=== PATIENT | male | born 1970 | race Caucasian/White ===

== ENCOUNTER 2023-05-13 18:46 | Inpatient (IN) | payer OTHER, SELFPAY ==
[2023-05-13 19:05] VITALS: BP 148/85; PULSE 84; RESP 15; TEMP 36.6; O2SAT 97
[2023-05-13 19:27] VITALS: BMI 26.0
[2023-05-13 20:00] VITALS: BP 115/66; PULSE 70; RESP 16; TEMP 36.7; O2SAT 97
[2023-05-13] MEDS: QUEtiapine Fumarate 200 MG TABLET PO (21:50)
[2023-05-13] MEDS: Carbidopa/Levodopa 25/100 TABLET 3 TAB PO (21:50)
[2023-05-13] MEDS: traZODone HCL 50 MG TABLET PO (21:51)
--- NOTE | 2023-05-14 00:03 | PC.ADMIT ---
Patient admitted to from [facility] on 05/13/23 at 1915 on a CV for SI. Patient had previous inpatient hospitalization at [facility] and was discharged 05/05/23, due to needing to attend a court hearing in [place]. Patient then traveled to [place] from [place] to seek help, patient reports his head ?feeling messed up? ever since he left [facility].? Patient wishing to be set up with PCP, and psychiatric provider as he has none of these. Medical history include parkinson?s disease for which he takes sinemet QID. Upon arrival to unit, skin and contraband check completed by prior shift. Patient cooperative with admission process. Signed releases for sister, insurance and pharmacy. Currently denying SI/HI/AH/VH, misha for safety. Patient declined flu shot.
[2023-05-14 07:00] VITALS: BMI 26.1
[2023-05-14 07:40] VITALS: BP 108/68; PULSE 78; RESP 16; TEMP 36.3; O2SAT 97
[2023-05-14 08:19] VITALS: BP 108/68; PULSE 78; RESP 16; TEMP 36.3; O2SAT 97
[2023-05-14 08:22] LABS: Estimated Average Glucose 103 mg/dL; Hemoglobin A1c % 5.2 % (<6.0)
[2023-05-14 08:33] LABS: Cholesterol 150 mg/dL (<200); HDL Cholesterol 37 mg/dL (>40); LDL Cholesterol Calculated 98 mg/dL (<100); Triglycerides 79 mg/dL (<150)
[2023-05-14] MEDS: Escitalopram Oxalate 10 MG TABLET PO (08:46)
[2023-05-14] MEDS: QUEtiapine Fumarate 50 MG TABLET PO (08:46)
[2023-05-14] MEDS: Carbidopa/Levodopa 25/100 TABLET 3 TAB PO ×4 (08:46→20:53)
[2023-05-14 08:48] LABS: Free T4 (Free Thyroxine) 0.76 ng/dL (0.71-1.85); Thyroid Stimulating Hormone 1.66 uIU/mL (0.32-4.0)
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
--- NOTE | 2023-05-14 12:22 | P.CONHOSP_ITS ---
History of Present Illness Data of Consult Service Date: 05/14/23 Primary Care Provider: Unknown Physician HPI Reason for consult: Admission H&P Pt is a 52-year-old male with a PMH significant for?Parkinson's disease, untreated hep C, alcohol use disorder, and bipolar disorder who is admitted to M3 psychiatry unit for increasing depression with vague SI. Apparently patient was recently at [facility] for psychiatric hospitalization but was discharged on 05/05/2023 because he had a court date to attend in [place]. Continues to feel suicidal and unsafe at home. Medical consult for admission H&P. ?Patient reports being diagnosed with Parkinson's in 2019 and states that it is both physically and mentally draining. Reports being compliant with his home medications. Patient also reports being diagnosed with hep C, though was not initially treated because he was drinking heavily at the time. Has not sought outpatient treatment for hep C since then. Currently patient states he is at baseline, and has no acute medical complaints at this time. Chronic musculoskeletal pain, especially in in left leg. Denies chest pain/pressure, palpitations. No fever, chills, nausea, vomiting, abdominal pain. No shortness of breath. Review of Systems Review of Systems: Patient has no acute medical complaints at this time [facility] Medical History (Updated 05/14/23 @ 12:46 by CHAGO Posada) Hepatitis C Alcohol use disorder Parkinsons disease Social History Household Members: Family Household Members Other:: NIECE/NEPHEW Housing: House Do you presently have visiting nurse or other home services: No Patient Tobacco Use Status: Current everyday Tobacco user Tobacco use type: Cigarette Cigarette Packs Per Day: 0.3 Cigarettes Per Day: 6.0 Smoked in Last 30 Days: Yes Patient Interested in Nicotine Replacement: No Patient Given Instructions on How to Stop Smoking: Yes Date Education Initiated: 05/13/23 Use of substances other than those prescribed or required for medical reasons: Yes Substance Use Type: Marijuana Substance Use Frequency: Daily Last Used Substance: Just Prior to Admission Currently Displaying Signs/Symptoms of Drug Intoxication Withdrawal: No Have you been hit, kicked, punched, or otherwise hurt by someone within the past year? If so, by whom?: No Do you feel safe in your current relationship?: No Current Relationship Is there a partner from a previous relationship who is making you feel unsafe now?: No Are you made to feel afraid or neglected: No Advance Directives: No Advance Directives Information Provided: No Do you have thoughts of harming others: None Do you have a plan to hurt others: No Plan Recently lost weight without trying: No Nutrition Risks: No Nutritional Risk Poor oral hygiene: No Meds Allergies Allergy/AdvReac Type Severity Reaction Status Date / Time No Known Allergies Allergy Verified 05/13/23 19:42 Active Medications: Current Medications Acetaminophen (Acetaminophen 325 Mg Tablet) 650 mg PO Q6H PRN PRN Reason: Headache/Pain Mild Scale (1-3) Al Hydroxide/Mg Hydroxide (Magnesium Hydrox/Alum Hydrox 30 Ml Oral.Susp) 30 ml PO Q6H PRN PRN Reason: Heartburn/Nausea Carbidopa/Levodopa (Carbidopa/Levodopa 25/100 Tablet) 3 tab PO QID PENDING SALE TO [facility] Last Admin: 05/14/23 08:46 Dose: 3 tab Escitalopram Oxalate (Escitalopram Oxalate 20 Mg Tablet) 20 mg PO DAILY [facility] Hydroxyzine HCl (Hydroxyzine Hcl 25 Mg Tablet) 25 mg PO Q6H PRN PRN Reason: Anxiety Magnesium Hydroxide (Milk Of Magnesia 30 Ml Oral.Susp) 30 ml PO DAILY PRN PRN Reason: Constipation Ondansetron HCl (Ondansetron Odt 4 Mg Tab.Rapdis) 4 mg TRANSLINGU Q6H PRN PRN Reason: Nausea and Vomiting Quetiapine Fumarate (Quetiapine Fumarate 200 Mg Tablet) 200 mg PO BEDTIME [facility]END[facility] Last Admin: 05/13/23 21:50 Dose: 200 mg Quetiapine Fumarate (Quetiapine Fumarate 25 Mg Tablet) 75 mg PO TID@0900,1300,1700 PEND[facility] TO [facility] Trazodone HCl (Trazodone Hcl 50 Mg Tablet) 50 mg PO BEDTIME MRX1 PRN PRN Reason: Insomnia Last Admin: 05/13/23 21:51 Dose: 50 mg Home Medications Medication Instructions Recorded Confirmed Last Taken Type carbidopa 25 mg-levodopa 100 mg 3 tab PO QID 05/13/23 05/13/23 Unknown History tablet escitalopram oxalate 10 mg tablet 10 mg PO DAILY 05/13/23 05/13/23 Unknown History quetiapine 200 mg tablet 200 mg PO BEDTIME 05/13/23 05/13/23 Unknown History quetiapine 50 mg tablet 50 mg PO BID 05/13/23 05/13/23 Unknown History trazodone 50 mg tablet 50 mg PO BEDTIME 05/13/23 05/13/23 Unknown History Physical Exam Vital Signs and Narrative: Vital Signs: Last Vital Signs Temp 97.3 F 05/14/23 08:19 Pulse 78 05/14/23 08:19 Resp 16 05/14/23 08:19 BP 108/68 05/14/23 08:19 Pulse Ox 97 05/14/23 08:19 O2 Del Method Room Air 05/14/23 08:19 BMI result Body Mass Index 26.0 General: AOx3, no acute distress Resp: CTA bilaterally CVS: S1, S2, RRR GI: +BS, NT, no distention Skin: Warm, dry Neuro: Cranial nerves II-XII grossly intact bilaterally. Motor grossly intact bilaterally Extremities: No edema Psych: Calm, cooperative Results Labs Labs: Laboratory Results - last 24 hr 05/14/23 08:05 Estimat Average Glucose 103 Hemoglobin A1c % 5.2 Magnesium 2.0 Triglycerides 79 Cholesterol 150 LDL Cholesterol, Calc 98 HDL Cholesterol 37 L TSH 1.66 Free T4 0.76 Assessment and Plan (1) Medical clearance for psychiatric admission: Status: Acute Plan Pt is a 52-year-old male with a PMH significant for?Parkinson's disease, untreated hep C, alcohol use disorder, and bipolar disorder who is admitted to M3 psychiatry unit for increasing depression with vague SI. Apparently patient was recently at [facility] for psychiatric hospitalization but was discharged on 05/05/2023 because he had a court date to attend in [place]. Continues to feel suicidal and unsafe at home. Medical consult for admission H&P. ? Mood disorder Plan as per Psychiatry Parkinson's disease Continue carbidopa levodopa Insomnia Continue trazodone Hepatitis-C Untreated Follow-up outpatient Thank you for allowing us to participate in the care of this patient. Signing off at this time. Please re-consult if any acute complaints or issues arise.
[2023-05-14 12:44] LABS: Folate 11.2 ng/mL (> or = 4.0); Vitamin B12 608 pg/mL (200-900)
[2023-05-14] MEDS: QUEtiapine Fumarate 25 MG TABLET 75 MG PO ×2 (13:01→17:24)
--- NOTE | 2023-05-14 14:30 | PC.NURSE ---
Pt completed a MOCA assessment with automotive service writer. PT scored a 21 out of 30 indicating a mild cognitive impairment.
--- NOTE | 2023-05-14 15:12 | PM.NEUROCN ---
History of Present Illness Data of Consult Service Date: 05/14/23 Primary Care Provider: Unknown Physician HPI Reason for consult: Parkinson's 52 years old man new to the system with underlying diagnosis of Parkinson's disease and history of alcohol abuse and some psychiatric disease. He has been taking relatively large dose of carbidopa levodopa. This routine consultation was requested for Parkinson's. He said that his main issue was shouting and kicking and jumping during sleep or during the night. He said that he was in [place] and there he was prescribed clonazepam. Review of Systems Review of Systems: Recent suicidal type of thoughts bringing him to psychiatric floor. [facility] Past Medical History Medical History (Updated 05/14/23 @ 15:15 by Nishant Wilhelm MD) Hepatitis C Alcohol use disorder Parkinsons disease Social History Social History Household Members: Family Household Members Other:: NIECE/NEPHEW Housing: House Do you presently have visiting nurse or other home services: No Patient Tobacco Use Status: Current everyday Tobacco user Tobacco use type: Cigarette Cigarette Packs Per Day: 0.3 Cigarettes Per Day: 6.0 Smoked in Last 30 Days: Yes Patient Interested in Nicotine Replacement: No Patient Given Instructions on How to Stop Smoking: Yes Date Education Initiated: 05/13/23 Use of substances other than those prescribed or required for medical reasons: Yes Substance Use Type: Marijuana Substance Use Frequency: Daily Last Used Substance: Just Prior to Admission Currently Displaying Signs/Symptoms of Drug Intoxication Withdrawal: No Have you been hit, kicked, punched, or otherwise hurt by someone within the past year? If so, by whom?: No Do you feel safe in your current relationship?: No Current Relationship Is there a partner from a previous relationship who is making you feel unsafe now?: No Are you made to feel afraid or neglected: No Advance Directives: No Advance Directives Information Provided: No Do you have thoughts of harming others: None Do you have a plan to hurt others: No Plan Recently lost weight without trying: No Nutrition Risks: No Nutritional Risk Poor oral hygiene: No service: No Sexual orientation: Straight/Heterosexual Meds Allergies Allergy/AdvReac Type Severity Reaction Status Date / Time No Known Allergies Allergy Verified 05/13/23 19:42 Active Medications: Current Medications Acetaminophen (Acetaminophen 325 Mg Tablet) 650 mg PO Q6H PRN PRN Reason: Headache/Pain Mild Scale (1-3) Al Hydroxide/Mg Hydroxide (Magnesium Hydrox/Alum Hydrox 30 Ml Oral.Susp) 30 ml PO Q6H PRN PRN Reason: Heartburn/Nausea Carbidopa/Levodopa (Carbidopa/Levodopa 25/100 Tablet) 3 tab PO QID [facility] Last Admin: 05/14/23 13:01 Dose: 3 tab Escitalopram Oxalate (Escitalopram Oxalate 20 Mg Tablet) 20 mg PO DAILY [facility] Hydroxyzine HCl (Hydroxyzine Hcl 25 Mg Tablet) 25 mg PO Q6H PRN PRN Reason: Anxiety Magnesium Hydroxide (Milk Of Magnesia 30 Ml Oral.Susp) 30 ml PO DAILY PRN PRN Reason: Constipation Ondansetron HCl (Ondansetron Odt 4 Mg Tab.Rapdis) 4 mg TRANSLINGU Q6H PRN PRN Reason: Nausea and Vomiting Quetiapine Fumarate (Quetiapine Fumarate 200 Mg Tablet) 200 mg PO BEDTIME [facility] Last Admin: 05/13/23 21:50 Dose: 200 mg Quetiapine Fumarate (Quetiapine Fumarate 25 Mg Tablet) 75 mg PO TID@0900,1300,1700 [facility] Last Admin: 05/14/23 13:01 Dose: 75 mg Trazodone HCl (Trazodone Hcl 50 Mg Tablet) 50 mg PO BEDTIME MRX1 PRN PRN Reason: Insomnia Last Admin: 05/13/23 21:51 Dose: 50 mg Home Medications Medication Instructions Recorded Confirmed Last Taken Type carbidopa 25 mg-levodopa 100 mg 3 tab PO QID 05/13/23 05/13/23 Unknown History tablet escitalopram oxalate 10 mg tablet 10 mg PO DAILY 05/13/23 05/13/23 Unknown History quetiapine 200 mg tablet 200 mg PO BEDTIME 05/13/23 05/13/23 Unknown History quetiapine 50 mg tablet 50 mg PO BID 05/13/23 05/13/23 Unknown History trazodone 50 mg tablet 50 mg PO BEDTIME 05/13/23 05/13/23 Unknown History Physical Exam Vital Signs: Vital Signs: Last Vital Signs Temp 97.3 F 05/14/23 08:19 Pulse 78 05/14/23 08:19 Resp 16 05/14/23 08:19 BP 108/68 05/14/23 08:19 Pulse Ox 97 05/14/23 08:19 O2 Del Method Room Air 05/14/23 08:19 BMI result Body Mass Index 26.1 Neuro: Other: He is alert and awake with normal spontaneity of speech fluency comprehension and affect. There is no significant reduction of facial expression blinking. He is walking around with mild choreiform movements of his arms and trunk. He has difficulty doing tandem gait. Deep tendon reflexes are trace to absent. Speech is normal. [id number] testing revealed mild chorea. Assessment and Plan (1) Movement disorder: Status: Acute 52 years old man I was asked to see for question of Parkinson's. Examining him I can say that he has mild chorea or choreiform movements but this might be related to relatively high dose of carbidopa levodopa he is taking. While he is on this medicine, it is impossible to examine his baseline and confirmed diagnosis of Parkinson's disease. If that diagnosis was previously made and this medicine was prescribed, I would suggest decreasing the does to 2 pills at a time instead of 3. He also reported some symptoms suggestive of REM sleep behavior disorder. I recommend gabapentin 300 or 600 mg 1 dose at bedtime for treatment. Procedures Date of Service Date of Service: 05/14/23
[2023-05-14 19:40] VITALS: BP 105/70; PULSE 74; RESP 16; TEMP 36.3; O2SAT 98
[2023-05-14] MEDS: traZODone HCL 50 MG TABLET PO (20:53)
[2023-05-14] MEDS: QUEtiapine Fumarate 200 MG TABLET PO (20:53)
[2023-05-15 07:56] VITALS: BP 112/67; PULSE 70; RESP 16; TEMP 36.6; O2SAT 98
[2023-05-15] MEDS: Escitalopram Oxalate 20 MG TABLET PO (09:01)
[2023-05-15] MEDS: QUEtiapine Fumarate 25 MG TABLET 75 MG PO ×3 (09:01→16:03)
[2023-05-15] MEDS: Carbidopa/Levodopa 25/100 TABLET 3 TAB PO (09:01)
[2023-05-15 09:58] LABS: COVID-19 Test Negative (Negative); IDNOW Serial# 58CA691E
[2023-05-15] MEDS: Carbidopa/Levodopa 25/100 TABLET 2 TAB PO ×3 (11:49→20:50)
--- NOTE | 2023-05-15 15:52 | HO.PSYCHPN ---
Subjective Subjective Date of Service: 05/15/23 Reason For Visit: unspecified depressive d/o Interim History: recs from neuro reviewed with pt, pt agrees to decrease sinemet dosing by 1/3 and to add gabapentin 600 at HS. discuss cognitive impairment. concerned about being able to pay for his PO Box from here, that it will be canceled. per staff, dep 7. no anx. flat. +ADLs. + grps. social with roommate. slept 8 hours. Mental Status Exam Mental Status Exam Narrative: adequately dressed and groomed. cooperative. no PMA/PMR. speech nml rate, amount, loudness. flattened tone, normal FELIZ. thoughts linear and logical. affect constricted, normo-intense, non-labile. mood not assessed. no SI/SIBI/HI/AVH expressed. Diagnostics Vital Signs (24Hr): Vital Signs - 24 hr 05/14/23 19:40 05/15/23 07:56 Temperature 97.3 F 97.9 F Pulse Rate 74 70 Respiratory Rate 16 16 Blood Pressure 105/70 112/67 Pulse Oximetry 98 98 Oxygen Delivery Method Room Air Room Air BMI result Body Mass Index 26.1 Labs Labs: Laboratory Results - last 48 hr 05/14/23 05/15/23 08:05 08:56 Estimat Average Glucose 103 Hemoglobin A1c % 5.2 Magnesium 2.0 Triglycerides 79 Cholesterol 150 LDL Cholesterol, Calc 98 HDL Cholesterol 37 L Vitamin B12 608 Folate 11.2 TSH 1.66 Free T4 0.76 COVID-19 (YANET) Negative COVID-19 Clin Com See Note Medications Medications Current Medications Acetaminophen (Acetaminophen 325 Mg Tablet) 650 mg PO Q6H PRN PRN Reason: Headache/Pain Mild Scale (1-3) Al Hydroxide/Mg Hydroxide (Magnesium Hydrox/Alum Hydrox 30 Ml Oral.Susp) 30 ml PO Q6H PRN PRN Reason: Heartburn/Nausea Carbidopa/Levodopa (Carbidopa/Levodopa 25/100 Tablet) 2 tab PO QID [facility] Last Admin: 05/15/23 11:49 Dose: 2 tab Escitalopram Oxalate (Escitalopram Oxalate 20 Mg Tablet) 20 mg PO DAILY [facility] Last Admin: 05/15/23 09:01 Dose: 20 mg Gabapentin (Gabapentin 600 Mg Tablet) 600 mg PO BEDTIME [facility] Hydroxyzine HCl (Hydroxyzine Hcl 25 Mg Tablet) 25 mg PO Q6H PRN PRN Reason: Anxiety Magnesium Hydroxide (Milk Of Magnesia 30 Ml Oral.Susp) 30 ml PO DAILY PRN PRN Reason: Constipation Ondansetron HCl (Ondansetron Odt 4 Mg Tab.Rapdis) 4 mg TRANSLINGU Q6H PRN PRN Reason: Nausea and Vomiting Quetiapine Fumarate (Quetiapine Fumarate 200 Mg Tablet) 200 mg PO BEDTIME [facility] Last Admin: 05/14/23 20:53 Dose: 200 mg Quetiapine Fumarate (Quetiapine Fumarate 25 Mg Tablet) 75 mg PO TID@0900,1300,1700 [facility] Last Admin: 05/15/23 11:49 Dose: 75 mg Trazodone HCl (Trazodone Hcl 50 Mg Tablet) 50 mg PO BEDTIME MRX1 PRN PRN Reason: Insomnia Last Admin: 05/14/23 20:53 Dose: 50 mg Allergies Allergies Allergy/AdvReac Type Severity Reaction Status Date / Time No Known Allergies Allergy Verified 05/13/23 19:42 Assessment & Plan Assessment & Plan (1) MCI (mild cognitive impairment): Status: Acute Code(s): G31.84 - Mild cognitive impairment of uncertain or unknown etiology (2) Parkinsons disease: Status: Acute Code(s): G20.A1 - Parkinson's disease without dyskinesia, without mention of fluctuations (3) Methamphetamine abuse in remission: Status: Acute Code(s): F15.11 - Other stimulant abuse, in remission (4) Cocaine abuse in remission: Status: Acute Code(s): F14.11 - Cocaine abuse, in remission (5) Opioid use disorder, severe, on maintenance therapy: Status: Acute Code(s): F11.20 - Opioid dependence, uncomplicated Plan 05/13: polysubstance use disorder, parkinson's Dz and parkinson's related dementia. c/o sleep disturbance (acting out dreams), will need sleep study. has not seen neuro for a year, requesting neuro consult for re-eval of medications regimen in light of sleep disorder and new cognitive impairment. increase seroquel regimen from 50/50/200 to 75/75/75/200. increase lexapro to 20 mg daily. [facility]CA 05/14/23. 05/14: neuro recs reviewed, pt agrees to changes: decrease sinemet dosing by 1/3, add gabapentin 600 at HS. otherwise continue current mgmt. Reason for continued inpatient stay Substantial Risk for: harm to self, inability to function and rapid decompensation Time Spent With Patient Time: Total time managing care of this patient today __25__ minutes.
[2023-05-15 18:00] VITALS: BP 118/67; PULSE 68; RESP 18; TEMP 36.4; O2SAT 98
[2023-05-15] MEDS: traZODone HCL 50 MG TABLET PO (20:50)
[2023-05-15] MEDS: QUEtiapine Fumarate 200 MG TABLET PO (20:50)
[2023-05-15] MEDS: Gabapentin 600 MG TABLET PO (20:50)
[2023-05-16 06:00] VITALS: BP 110/68; PULSE 70; RESP 16; TEMP 36.8; O2SAT 99
[2023-05-16] MEDS: QUEtiapine Fumarate 25 MG TABLET 75 MG PO ×3 (09:13→17:13)
[2023-05-16] MEDS: Carbidopa/Levodopa 25/100 TABLET 2 TAB PO ×4 (09:13→21:26)
[2023-05-16] MEDS: Escitalopram Oxalate 20 MG TABLET PO (09:13)
--- NOTE | 2023-05-16 11:53 | HO.PSYCHPN ---
Subjective Subjective Date of Service: 05/16/23 Reason For Visit: unspecified depressive d/o Subjective Notes: Conditional Voluntary Interim History: Pt reports improvement in mood and physical with lower dose of sinemet- reports feeling much less activated and jumpy. He reports his mood is better, but today he learned he is not able to go back to his niece house. He denies SI/HI. he expressed concern in terms of housing and where will he go next. No behavioral concerns. Review of Systems Review of Systems Recent suicidal type of thoughts bringing him to psychiatric floor. Mental Status Exam Mental Status Exam Narrative: adequately dressed and groomed. cooperative. no PMA/PMR. speech nml rate, amount, loudness. flattened tone, normal FELIZ. thoughts linear and logical. affect constricted, normo-intense, non-labile. mood not assessed. no SI/SIBI/HI/AVH expressed. Diagnostics Vital Signs (24Hr): Vital Signs - 24 hr 05/15/23 18:00 05/16/23 06:00 Temperature 97.5 F 98.2 F Pulse Rate 68 70 Respiratory Rate 18 16 Blood Pressure 118/67 110/68 Pulse Oximetry 98 99 Oxygen Delivery Method Room Air Room Air BMI result Body Mass Index 26.1 Labs Labs: Laboratory Results - last 48 hr 05/14/23 05/15/23 08:05 08:56 Vitamin B12 608 Folate 11.2 COVID-19 (YANET) Negative COVID-19 Clin Com See Note Medications Medications Current Medications Acetaminophen (Acetaminophen 325 Mg Tablet) 650 mg PO Q6H PRN PRN Reason: Headache/Pain Mild Scale (1-3) Al Hydroxide/Mg Hydroxide (Magnesium Hydrox/Alum Hydrox 30 Ml Oral.Susp) 30 ml PO Q6H PRN PRN Reason: Heartburn/Nausea Carbidopa/Levodopa (Carbidopa/Levodopa 25/100 Tablet) 2 tab PO QID [facility] Last Admin: 05/16/23 09:13 Dose: 2 tab Escitalopram Oxalate (Escitalopram Oxalate 20 Mg Tablet) 20 mg PO DAILY [facility] Last Admin: 05/16/23 09:13 Dose: 20 mg Gabapentin (Gabapentin 600 Mg Tablet) 600 mg PO BEDTIME [facility] Last Admin: 05/15/23 20:50 Dose: 600 mg Hydroxyzine HCl (Hydroxyzine Hcl 25 Mg Tablet) 25 mg PO Q6H PRN PRN Reason: Anxiety Magnesium Hydroxide (Milk Of Magnesia 30 Ml Oral.Susp) 30 ml PO DAILY PRN PRN Reason: Constipation Ondansetron HCl (Ondansetron Odt 4 Mg Tab.Rapdis) 4 mg TRANSLINGU Q6H PRN PRN Reason: Nausea and Vomiting Quetiapine Fumarate (Quetiapine Fumarate 200 Mg Tablet) 200 mg PO BEDTIME [facility] Last Admin: 05/15/23 20:50 Dose: 200 mg Quetiapine Fumarate (Quetiapine Fumarate 25 Mg Tablet) 75 mg PO TID@0900,1300,1700 [facility] Last Admin: 05/16/23 09:13 Dose: 75 mg Trazodone HCl (Trazodone Hcl 50 Mg Tablet) 50 mg PO BEDTIME MRX1 PRN PRN Reason: Insomnia Last Admin: 05/15/23 20:50 Dose: 50 mg Allergies Allergies Allergy/AdvReac Type Severity Reaction Status Date / Time No Known Allergies Allergy Verified 05/13/23 19:42 Assessment & Plan Assessment & Plan (1) MCI (mild cognitive impairment): Status: Acute Code(s): G31.84 - Mild cognitive impairment of uncertain or unknown etiology (2) Parkinsons disease: Status: Acute Code(s): G20.A1 - Parkinson's disease without dyskinesia, without mention of fluctuations (3) Methamphetamine abuse in remission: Status: Acute Code(s): F15.11 - Other stimulant abuse, in remission (4) Cocaine abuse in remission: Status: Acute Code(s): F14.11 - Cocaine abuse, in remission (5) Opioid use disorder, severe, on maintenance therapy: Status: Acute Code(s): F11.20 - Opioid dependence, uncomplicated Plan 05/13: polysubstance use disorder, parkinson's Dz and parkinson's related dementia. c/o sleep disturbance (acting out dreams), will need sleep study. has not seen neuro for a year, requesting neuro consult for re-eval of medications regimen in light of sleep disorder and new cognitive impairment. increase seroquel regimen from 50/50/200 to 75/75/75/200. increase lexapro to 20 mg daily. MoCA 05/14/23. 05/14: neuro recs reviewed, pt agrees to changes: decrease sinemet dosing by 1/3, add gabapentin 600 at HS. otherwise continue current mgmt. 05/15 continue tx. Reason for continued inpatient stay Substantial Risk for: inability to function Time Spent With Patient Time: Total time managing care of this patient today ____ minutes.
[2023-05-16 20:35] VITALS: BP 110/68; PULSE 92; RESP 18; TEMP 37.1; O2SAT 95
[2023-05-16] MEDS: Gabapentin 600 MG TABLET PO (21:27)
[2023-05-16] MEDS: QUEtiapine Fumarate 200 MG TABLET PO (21:27)
[2023-05-16] MEDS: traZODone HCL 50 MG TABLET PO (21:27)
--- NOTE | 2023-05-17 08:45 | MHC.RECOVRN ---
AUDIT-C Brief Intervention Pt had positive screen for unhealthy alcohol use on admission, subsequently met with t/w to discuss alcohol use and recovery supports/options. Pt voices concern regarding alcohol use and is aware that drinking at unhealthy levels is known to increase risk of alcohol related healthproblems. Pt reports recurrence x less than one week, unknown amount of Fireball daily. Pt expresses how alcohol use has impacted health, including negative impact on mental health. Discussed risk reduction strategies including drinking below the recommended limit. Provided pt with written resources including information on inpatient and outpatient treatment, RYLAN, harm reduction, and recovery coaching. Pt plans to attend AA meetings after discharge and live in a healthy and sober environment. Pt provided with t/w contact information if questions or concerns arise. Denies other questions or concerns at this time.
[2023-05-17 09:54] VITALS: BP 117/75; PULSE 69; RESP 15; TEMP 36.2; O2SAT 97
[2023-05-17] MEDS: QUEtiapine Fumarate 25 MG TABLET 75 MG PO ×3 (09:55→15:57)
[2023-05-17] MEDS: Carbidopa/Levodopa 25/100 TABLET 2 TAB PO ×4 (09:55→21:00)
[2023-05-17] MEDS: Escitalopram Oxalate 20 MG TABLET PO (09:55)
[2023-05-17] MEDS: hydrOXYzine HCL 25 MG TABLET PO (15:57)
[2023-05-17 19:40] VITALS: BP 116/67; PULSE 75; RESP 18; TEMP 36.8; O2SAT 99
--- NOTE | 2023-05-17 20:10 | HO.PSYCHPN ---
Subjective Subjective Date of Service: 05/17/23 Reason For Visit: unspecified depressive d/o Subjective Notes: Conditional Voluntary Interim History: Pt continues to report mood is better, but he is concern about housing situation now that he learned he can't go back to niece's house. He wants to continue dual dx treatment. He also reports he keeps thinking about his ex having affair with his brother and friend. No behavioral concerns. Review of Systems Review of Systems Recent suicidal type of thoughts bringing him to psychiatric floor. Mental Status Exam Mental Status Exam Narrative: adequately dressed and groomed. cooperative. no PMA/PMR. speech nml rate, amount, loudness. flattened tone, normal FELIZ. thoughts linear and logical. affect constricted, normo-intense, non-labile. mood not assessed. no SI/SIBI/HI/AVH expressed. Diagnostics Vital Signs (24Hr): Vital Signs - 24 hr 05/16/23 20:35 05/17/23 09:54 05/17/23 19:40 Temperature 98.8 F 97.1 F 98.2 F Pulse Rate 92 69 75 Respiratory Rate 18 15 18 Blood Pressure 110/68 117/75 116/67 Pulse Oximetry 95 97 99 Oxygen Delivery Method Room Air Room Air Room Air BMI result Body Mass Index 26.1 Medications Medications Current Medications Acetaminophen (Acetaminophen 325 Mg Tablet) 650 mg PO Q6H PRN PRN Reason: Headache/Pain Mild Scale (1-3) Al Hydroxide/Mg Hydroxide (Magnesium Hydrox/Alum Hydrox 30 Ml Oral.Susp) 30 ml PO Q6H PRN PRN Reason: Heartburn/Nausea Carbidopa/Levodopa (Carbidopa/Levodopa 25/100 Tablet) 2 tab PO QID [facility] Last Admin: 05/17/23 17:30 Dose: 2 tab Escitalopram Oxalate (Escitalopram Oxalate 20 Mg Tablet) 20 mg PO DAILY [facility] Last Admin: 05/17/23 09:55 Dose: 20 mg Gabapentin (Gabapentin 600 Mg Tablet) 600 mg PO BEDTIME [facility] Last Admin: 05/16/23 21:27 Dose: 600 mg Hydroxyzine HCl (Hydroxyzine Hcl 25 Mg Tablet) 25 mg PO Q6H PRN PRN Reason: Anxiety Last Admin: 05/17/23 15:57 Dose: 25 mg Magnesium Hydroxide (Milk Of Magnesia 30 Ml Oral.Susp) 30 ml PO DAILY PRN PRN Reason: Constipation Ondansetron HCl (Ondansetron Odt 4 Mg Tab.Rapdis) 4 mg TRANSLINGU Q6H PRN PRN Reason: Nausea and Vomiting Quetiapine Fumarate (Quetiapine Fumarate 200 Mg Tablet) 200 mg PO BEDTIME [facility] Last Admin: 05/16/23 21:27 Dose: 200 mg Quetiapine Fumarate (Quetiapine Fumarate 25 Mg Tablet) 75 mg PO TID@0900,1300,1700 [facility] Last Admin: 05/17/23 15:57 Dose: 75 mg Trazodone HCl (Trazodone Hcl 50 Mg Tablet) 50 mg PO BEDTIME MRX1 PRN PRN Reason: Insomnia Last Admin: 05/16/23 21:27 Dose: 50 mg Allergies Allergies Allergy/AdvReac Type Severity Reaction Status Date / Time No Known Allergies Allergy Verified 05/13/23 19:42 Assessment & Plan Assessment & Plan (1) MCI (mild cognitive impairment): Status: Acute Code(s): G31.84 - Mild cognitive impairment of uncertain or unknown etiology (2) Parkinsons disease: Status: Acute Code(s): G20.A1 - Parkinson's disease without dyskinesia, without mention of fluctuations (3) Methamphetamine abuse in remission: Status: Acute Code(s): F15.11 - Other stimulant abuse, in remission (4) Cocaine abuse in remission: Status: Acute Code(s): F14.11 - Cocaine abuse, in remission (5) Opioid use disorder, severe, on maintenance therapy: Status: Acute Code(s): F11.20 - Opioid dependence, uncomplicated Plan 05/13: polysubstance use disorder, parkinson's Dz and parkinson's related dementia. c/o sleep disturbance (acting out dreams), will need sleep study. has not seen neuro for a year, requesting neuro consult for re-eval of medications regimen in light of sleep disorder and new cognitive impairment. increase seroquel regimen from 50/50/200 to 75/75/75/200. increase lexapro to 20 mg daily. MoCA 05/14/23. 05/14: neuro recs reviewed, pt agrees to changes: decrease sinemet dosing by 1/3, add gabapentin 600 at HS. otherwise continue current mgmt. 05/15 continue tx 05/16 continue tx. Reason for continued inpatient stay Substantial Risk for: inability to function Time Spent With Patient Time: Total time managing care of this patient today ____ minutes.
[2023-05-17] MEDS: QUEtiapine Fumarate 200 MG TABLET PO (21:00)
[2023-05-17] MEDS: Gabapentin 600 MG TABLET PO (21:00)
[2023-05-17] MEDS: traZODone HCL 50 MG TABLET PO (21:00)
[2023-05-18 07:40] VITALS: BP 108/69; PULSE 76; RESP 16; TEMP 36.7; O2SAT 96
[2023-05-18] MEDS: Escitalopram Oxalate 20 MG TABLET PO (09:03)
[2023-05-18] MEDS: QUEtiapine Fumarate 25 MG TABLET 75 MG PO ×3 (09:03→17:28)
[2023-05-18] MEDS: Carbidopa/Levodopa 25/100 TABLET 2 TAB PO ×4 (09:04→20:49)
--- NOTE | 2023-05-18 14:19 | HO.PSYCHPN ---
Subjective Subjective Date of Service: 05/18/23 Reason For Visit: unspecified depressive d/o Interim History: calm, cooperative. can't return to niece's house. feels decrease in sinemet dosing has been fine, working well, only slight tremor in left hand. still yelling and cussing at night in his sleep. states he is not getting out of bed, however, so he sees that as improved as well. amenable to DC . per staff, no behavioral issues. slept 8 hours. Mental Status Exam Mental Status Exam Narrative: adequately dressed and groomed. cooperative. no PMA/PMR. speech nml rate, amount, loudness. flattened tone, normal FELIZ. thoughts linear and logical. affect constricted, normo-intense, non-labile. mood not assessed. no SI/SIBI/HI/AVH expressed. Diagnostics Vital Signs (24Hr): Vital Signs - 24 hr 05/17/23 19:40 05/18/23 07:40 Temperature 98.2 F 98.1 F Pulse Rate 75 76 Respiratory Rate 18 16 Blood Pressure 116/67 108/69 Pulse Oximetry 99 96 Oxygen Delivery Method Room Air Room Air BMI result Body Mass Index 26.1 Medications Medications Current Medications Acetaminophen (Acetaminophen 325 Mg Tablet) 650 mg PO Q6H PRN PRN Reason: Headache/Pain Mild Scale (1-3) Al Hydroxide/Mg Hydroxide (Magnesium Hydrox/Alum Hydrox 30 Ml Oral.Susp) 30 ml PO Q6H PRN PRN Reason: Heartburn/Nausea Carbidopa/Levodopa (Carbidopa/Levodopa 25/100 Tablet) 2 tab PO QID [facility] Last Admin: 05/18/23 12:58 Dose: 2 tab Escitalopram Oxalate (Escitalopram Oxalate 20 Mg Tablet) 20 mg PO DAILY [facility] Last Admin: 05/18/23 09:03 Dose: 20 mg Gabapentin (Gabapentin 600 Mg Tablet) 600 mg PO BEDTIME [facility] Last Admin: 05/17/23 21:00 Dose: 600 mg Hydroxyzine HCl (Hydroxyzine Hcl 25 Mg Tablet) 25 mg PO Q6H PRN PRN Reason: Anxiety Last Admin: 05/17/23 15:57 Dose: 25 mg Magnesium Hydroxide (Milk Of Magnesia 30 Ml Oral.Susp) 30 ml PO DAILY PRN PRN Reason: Constipation Ondansetron HCl (Ondansetron Odt 4 Mg Tab.Rapdis) 4 mg TRANSLINGU Q6H PRN PRN Reason: Nausea and Vomiting Quetiapine Fumarate (Quetiapine Fumarate 200 Mg Tablet) 200 mg PO BEDTIME [facility] Last Admin: 05/17/23 21:00 Dose: 200 mg Quetiapine Fumarate (Quetiapine Fumarate 25 Mg Tablet) 75 mg PO TID@0900,1300,1700 [facility] Last Admin: 05/18/23 12:58 Dose: 75 mg Trazodone HCl (Trazodone Hcl 50 Mg Tablet) 50 mg PO BEDTIME MRX1 PRN PRN Reason: Insomnia Last Admin: 05/17/23 21:00 Dose: 50 mg Allergies Allergies Allergy/AdvReac Type Severity Reaction Status Date / Time No Known Allergies Allergy Verified 05/13/23 19:42 Assessment & Plan Assessment & Plan (1) MCI (mild cognitive impairment): Status: Acute Code(s): G31.84 - Mild cognitive impairment of uncertain or unknown etiology (2) Parkinsons disease: Status: Acute Code(s): G20.A1 - Parkinson's disease without dyskinesia, without mention of fluctuations (3) Methamphetamine abuse in remission: Status: Acute Code(s): F15.11 - Other stimulant abuse, in remission (4) Cocaine abuse in remission: Status: Acute Code(s): F14.11 - Cocaine abuse, in remission (5) Opioid use disorder, severe, on maintenance therapy: Status: Acute Code(s): F11.20 - Opioid dependence, uncomplicated Plan 05/13: polysubstance use disorder, parkinson's Dz and parkinson's related dementia. c/o sleep disturbance (acting out dreams), will need sleep study. has not seen neuro for a year, requesting neuro consult for re-eval of medications regimen in light of sleep disorder and new cognitive impairment. increase seroquel regimen from 50/50/200 to 75/75/75/200. increase lexapro to 20 mg daily. MoCA 05/14/23. 05/14: neuro recs reviewed, pt agrees to changes: decrease sinemet dosing by 1/3, add gabapentin 600 at HS. otherwise continue current mgmt. 05/15 continue tx 05/16 continue tx. 05/17: feeling well on current regimen. decrease in sinemet dosing has not caused substantial worsening of his condition. addition of gabapentin at HS appears to have ameliorated sleep disordered behavior. Reason for continued inpatient stay Substantial Risk for: inability to function and rapid decompensation Time Spent With Patient Time: Total time managing care of this patient today __25__ minutes.
[2023-05-18 19:50] VITALS: BP 100/60; PULSE 82; RESP 16; TEMP 36; O2SAT 96
[2023-05-18] MEDS: QUEtiapine Fumarate 200 MG TABLET PO (20:48)
[2023-05-18] MEDS: Gabapentin 600 MG TABLET PO (20:50)
[2023-05-18] MEDS: traZODone HCL 50 MG TABLET PO (21:18)
[2023-05-19 07:45] VITALS: BP 119/77; PULSE 76; RESP 18; TEMP 36.4; O2SAT 97
[2023-05-19] MEDS: QUEtiapine Fumarate 25 MG TABLET 75 MG PO ×3 (08:45→16:59)
[2023-05-19] MEDS: Carbidopa/Levodopa 25/100 TABLET 2 TAB PO ×4 (08:46→21:34)
[2023-05-19] MEDS: Escitalopram Oxalate 20 MG TABLET PO (08:46)
--- NOTE | 2023-05-19 15:50 | P.PNPSI_ITS ---
Subjective Subjective Date of Service: 05/19/23 Reason For Visit: unspecified depressive d/o Interim History: discuss putative REM sleep disorder, use of melatonin. pt agrees to trial. otherwise planning [facility] to [facility]. per staff, dep/anx. flat affect. pleasant, cooperative. slept 8+ hours. Mental Status Exam Mental Status Exam Narrative: adequately dressed and groomed. cooperative. no PMA/PMR. speech nml rate, amount, loudness. flattened tone, normal FELIZ. thoughts linear and logical. affect constricted, normo-intense, non-labile. mood not assessed. no SI/SIBI/HI/AVH expressed. Diagnostics Vital Signs (24Hr): Vital Signs - 24 hr 05/18/23 19:50 05/19/23 07:45 Temperature 96.8 F 97.5 F Pulse Rate 82 76 Respiratory Rate 16 18 Blood Pressure 100/60 119/77 Pulse Oximetry 96 97 Oxygen Delivery Method Room Air Room Air BMI result Body Mass Index 26.1 Medications Medications Current Medications Acetaminophen (Acetaminophen 325 Mg Tablet) 650 mg PO Q6H PRN PRN Reason: Headache/Pain Mild Scale (1-3) Al Hydroxide/Mg Hydroxide (Magnesium Hydrox/Alum Hydrox 30 Ml Oral.Susp) 30 ml PO Q6H PRN PRN Reason: Heartburn/Nausea Carbidopa/Levodopa (Carbidopa/Levodopa 25/100 Tablet) 2 tab PO QID [facility] Last Admin: 05/19/23 13:02 Dose: 2 tab Escitalopram Oxalate (Escitalopram Oxalate 20 Mg Tablet) 20 mg PO DAILY [facility] Last Admin: 05/19/23 08:46 Dose: 20 mg Gabapentin (Gabapentin 600 Mg Tablet) 600 mg PO BEDTIME [facility] Last Admin: 05/18/23 20:50 Dose: 600 mg Hydroxyzine HCl (Hydroxyzine Hcl 25 Mg Tablet) 25 mg PO Q6H PRN PRN Reason: Anxiety Last Admin: 05/17/23 15:57 Dose: 25 mg Magnesium Hydroxide (Milk Of Magnesia 30 Ml Oral.Susp) 30 ml PO DAILY PRN PRN Reason: Constipation Melatonin (Melatonin 3 Mg Tablet) 6 mg PO BEDTIME [facility] Ondansetron HCl (Ondansetron Odt 4 Mg Tab.Rapdis) 4 mg TRANSLINGU Q6H PRN PRN Reason: Nausea and Vomiting Quetiapine Fumarate (Quetiapine Fumarate 200 Mg Tablet) 200 mg PO BEDTIME [facility] Last Admin: 05/18/23 20:48 Dose: 200 mg Quetiapine Fumarate (Quetiapine Fumarate 25 Mg Tablet) 75 mg PO TID@0900,1300,1700 [facility] Last Admin: 05/19/23 13:02 Dose: 75 mg Trazodone HCl (Trazodone Hcl 50 Mg Tablet) 50 mg PO BEDTIME MRX1 PRN PRN Reason: Insomnia Last Admin: 05/18/23 21:18 Dose: 50 mg Allergies Allergies Allergy/AdvReac Type Severity Reaction Status Date / Time No Known Allergies Allergy Verified 05/13/23 19:42 Assessment & Plan Assessment & Plan (1) MCI (mild cognitive impairment): Status: Acute Code(s): G31.84 - Mild cognitive impairment of uncertain or unknown etiology (2) Parkinsons disease: Status: Acute Code(s): G20.A1 - Parkinson's disease without dyskinesia, without mention of fluctuations (3) Methamphetamine abuse in remission: Status: Acute Code(s): F15.11 - Other stimulant abuse, in remission (4) Cocaine abuse in remission: Status: Acute Code(s): F14.11 - Cocaine abuse, in remission (5) Opioid use disorder, severe, on maintenance therapy: Status: Acute Code(s): F11.20 - Opioid dependence, uncomplicated Plan 05/13: polysubstance use disorder, parkinson's Dz and parkinson's related dementia. c/o sleep disturbance (acting out dreams), will need sleep study. has not seen neuro for a year, requesting neuro consult for re-eval of medications regimen in light of sleep disorder and new cognitive impairment. increase seroquel regimen from 50/50/200 to 75/75/75/200. increase lexapro to 20 mg daily. [facility]CA 05/14/23. 05/14: neuro recs reviewed, pt agrees to changes: decrease sinemet dosing by 1/3, add gabapentin 600 at HS. otherwise continue current mgmt. 05/15 continue tx 05/16 continue tx. 05/17: feeling well on current regimen. decrease in sinemet dosing has not caused substantial worsening of his condition. addition of gabapentin at HS appears to have ameliorated sleep disordered behavior. 05/18: sleep disorder remains troubling, however attenuated. add melatonin 6 mg QHS. otherwise continue current mgmt. planning for discharge . Reason for continued inpatient stay Substantial Risk for: inability to function and rapid decompensation Time Spent With Patient Time: Total time managing care of this patient today __25__ minutes.
[2023-05-19 19:55] VITALS: BP 107/60; PULSE 83; RESP 16; TEMP 36.7; O2SAT 97
[2023-05-19] MEDS: Gabapentin 600 MG TABLET PO (21:33)
[2023-05-19] MEDS: traZODone HCL 50 MG TABLET PO (21:33)
[2023-05-19] MEDS: QUEtiapine Fumarate 200 MG TABLET PO (21:33)
[2023-05-19] MEDS: Melatonin 3 MG TABLET 6 MG PO (21:33)
[2023-05-20 09:05] VITALS: BP 130/80; PULSE 70; RESP 16; TEMP 36.6; O2SAT 97
[2023-05-20] MEDS: Carbidopa/Levodopa 25/100 TABLET 2 TAB PO ×4 (09:06→21:31)
[2023-05-20] MEDS: QUEtiapine Fumarate 25 MG TABLET 75 MG PO ×3 (09:06→17:01)
[2023-05-20] MEDS: Escitalopram Oxalate 20 MG TABLET PO (09:07)
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
[2023-05-20 19:57] VITALS: BP 98/58; PULSE 85; RESP 16; TEMP 36.2; O2SAT 96
[2023-05-20] MEDS: QUEtiapine Fumarate 200 MG TABLET PO (21:31)
[2023-05-20] MEDS: Gabapentin 600 MG TABLET PO (21:31)
[2023-05-20] MEDS: traZODone HCL 50 MG TABLET PO (21:31)
[2023-05-20] MEDS: Melatonin 3 MG TABLET 6 MG PO (21:31)
[2023-05-21 07:30] VITALS: BP 123/76; PULSE 73; RESP 16; TEMP 36.6; O2SAT 97
[2023-05-21] MEDS: QUEtiapine Fumarate 25 MG TABLET 75 MG PO (08:36)
[2023-05-21] MEDS: Carbidopa/Levodopa 25/100 TABLET 2 TAB PO (08:36)
[2023-05-21] MEDS: Escitalopram Oxalate 20 MG TABLET PO (08:36)
== END 2023-05-21 11:15 | disposition home or self-care (01) | DRG 754 ==
PROVIDERS: Clinical Nurse Specialist Psychiatric/Mental Health, Adult; Admitting Provider Psychiatry & Neurology Psychiatry; Visit Provider Psychiatry & Neurology Psychiatry
DX: F32.A Depression, unspecified (principal); F02.80 Dementia in other diseases classified elsewhere, unspecified severity, without behavioral disturbance, psychotic disturbance, mood disturbance, and anxiety; R45.851 Suicidal ideations; G20.A1 Parkinson's disease without dyskinesia, without mention of fluctuations; F17.210 Nicotine dependence, cigarettes, uncomplicated; F15.20 Other stimulant dependence, uncomplicated; F19.20 Other psychoactive substance dependence, uncomplicated; Z20.822 Contact with and (suspected) exposure to COVID-19; Z71.6 Tobacco abuse counseling; F11.20 Opioid dependence, uncomplicated; Z79.899 Other long term (current) drug therapy
CPT/HCPCS: 36415; 80061; 82607; 82746; 83036; 83735; 84439; 84443; 87635

== ENCOUNTER → 2023-05-13 18:46 | Outpatient (BNV) | payer OTHER, SELFPAY | PROVIDERS: Admitting Provider Psychiatry & Neurology Psychiatry; Visit Provider Psychiatry & Neurology Neurology | DX: G25.9 Extrapyramidal and movement disorder, unspecified (principal) | CPT/HCPCS: 99222 ==

== ENCOUNTER → 2023-05-13 18:46 | Outpatient (BNV) | payer OTHER, SELFPAY | PROVIDERS: Admitting Provider Psychiatry & Neurology Psychiatry; Visit Provider Student in an Organized Health Care Education/Training Program | DX: Z02.2 Encounter for examination for admission to residential institution (principal) | CPT/HCPCS: 99429 ==

== ENCOUNTER → 2023-05-13 18:46 | Outpatient (BNV) | payer OTHER, SELFPAY | PROVIDERS: Admitting Provider Psychiatry & Neurology Psychiatry; Visit Provider Psychiatry & Neurology Psychiatry | DX: F15.11 Other stimulant abuse, in remission (principal); F14.11 Cocaine abuse, in remission; G20.A1 Parkinson's disease without dyskinesia, without mention of fluctuations; G31.84 Mild cognitive impairment of uncertain or unknown etiology; F11.20 Opioid dependence, uncomplicated | CPT/HCPCS: 90792; 99231; 99232; 99239 ==

== ENCOUNTER 2023-07-10 08:10 | Emergency (ER) | payer OTHER, SELFPAY ==
--- NOTE | 2023-07-10 08:12 | ECG_ITS ---
Test Reason : qt interval Blood Pressure : / mmHG Vent. Rate : 080 BPM Atrial Rate : 080 BPM P-R Int : 190 ms QRS Dur : 082 ms QT Int : 380 ms P-R-T Axes : 059 014 038 degrees QTc Int : 438 ms Normal sinus rhythm Normal ECG No previous ECGs available Referred By: Elenita Caldera Electronically Signed By:Phill Morales
--- NOTE | 2023-07-10 08:12 | ED.GENADULT ---
HPI - General Adult General Chief complaint: Psychiatric Symptoms Stated complaint: SI WEAKNESS Time Seen by Provider: 07/10/23 08:12 Source: patient and EMS Mode of arrival: EMS Limitations: no limitations History of Present Illness HPI narrative: Patient is a 52 year old assigned male at with a history of cocaine abuse, methampheatmine abuse, MCI, alcohol abuse, and parkinsons presenting to the emergency department today with increased suicidal ideation and depression. Patient states that he has been feeling much more depressed / down lately. Patient states that he has a plan to jump in front of a truck. Patient denies any dizziness, lightheadedness, abdominal pain, nausea, vomiting, fever, chills, blurry vision, double vision, loss of vision, chest pain, difficulty breathing, shortness of breath, back pain, night sweats, pain with urination, increased urinary frequency, increased urinary urgency, blood in his urine or stool, syncope or a near syncopal episode, recent trauma or falls, bowel incontinence, bladder incontinence, bowel retention, bladder retention, or any other complaints at this time. Relieving factors: none Exacerbating factors: none Associated symptoms: denies other symptoms Treatments prior to arrival: none Related Data Home Medications ?Medication ?Instructions ?Recorded ?Confirmed quetiapine 25 mg tablet 50 mg PO TID@0900,1300,1700 07/10/23 07/10/23 trazodone 50 mg tablet 100 mg PO BEDTIME 07/10/23 07/10/23 Previous Rx's ?Medication ?Instructions ?Recorded carbidopa 25 mg-levodopa 100 mg 2 tab PO QID 30 days #240 tabs 05/20/23 tablet melatonin 3 mg tablet 6 mg (2 x 3 mg) PO BEDTIME 30 days 05/20/23 #60 tabs quetiapine 200 mg tablet 200 mg PO BEDTIME 30 days #30 tabs 05/20/23 Allergies Allergy/AdvReac Type Severity Reaction Status Date / Time No Known Allergies Allergy Verified 07/10/23 08:24 Review of Systems Constitutional: Constitutional: Reports no additional constitutional complaints, Denies chills, Denies fever(s) and Denies night sweats Eyes: Eyes: Reports no additional eye complaints, Denies blurry vision, Denies change in vision, Denies diplopia, Denies eye discharge, Denies loss of vision and Denies eye pain ENT: Denies dizziness Cardiovascular: Cardiovascular: Reports no additional cardiovascular complaints, Denies chest pain, Denies lightheadedness, Denies Loss of Consciousness and Denies dyspnea Respiratory: Respiratory: Reports no additional respiratory complaints and Denies dyspnea Gastrointestinal: Gastrointestinal: Reports no additional gastrointestinal complaints, Denies abdominal pain, Denies melena, Denies hematochezia, Denies change in bowel habits and Denies change in stool character Genitourinary: Genitourinary: Reports no additional male genitourinary complaints, Denies hematuria, Denies oliguria, Denies difficulty urinating, Denies dysuria, Denies urinary frequency, Denies urinary hesitancy, Denies urinary incontinence and Denies urinary urgency Musculoskeletal: Musculoskeletal: Reports no additional musculoskeletal complaints, Denies numbness and Denies tingling Neurologic: Denies dizziness, Denies loss of vision, Denies numbness and Denies tingling Psychiatric: Psychiatric: Reports depression, Denies homicidal ideation and Reports suicidal ideation Endocrine: Endocrine: Reports no additional endocrine complaints Hematologic/Lymphatic: Hematologic/Lymphatic: Reports no additional hematologic/lymphatic complaints Allergic/Immunologic: Allergic/Immunologic: Reports no additional allergic/immunologic complaints [facility] Past Medical History Attestation statement: The following information was validated with the patient. Source: old records reviewed and nursing notes reviewed Medical History Medical clearance for psychiatric admission Hepatitis C Alcohol use disorder Parkinsons disease Social History Social History Household Members: Family Household Members Other:: NIECE/NEPHEW Housing: House Do you presently have visiting nurse or other home services: No Alcohol intake: current Alcohol intake frequency: 0-2 drinks per day Alcohol type: hard liquor Patient Tobacco Use Status: Current everyday Tobacco user Tobacco use type: Cigarette Cigarette Packs Per Day: 0.3 Cigarettes Per Day: 6.0 Smoked in Last 30 Days: Yes Use of substances other than those prescribed or required for medical reasons: Yes Substance Use Type: Marijuana Substance Use Frequency: Chronic Longstanding Advance Directives: No Advance Directives Information Provided: No service: No Sexual orientation: Straight/Heterosexual Physical Exam ED Vital Signs: Vital Signs - 24 hr 07/10/23 08:23 07/10/23 08:29 07/10/23 14:00 Temperature 97.4 F 98.4 F Pulse Rate 103 H 99 93 Respiratory Rate 16 16 16 Blood Pressure 124/65 105/69 Pulse Oximetry 98 98 96 Oxygen Delivery Method Room Air Room Air Room Air 07/10/23 15:25 Temperature 98.0 F Pulse Rate 68 Respiratory Rate 16 Blood Pressure 108/66 Pulse Oximetry 98 Oxygen Delivery Method Room Air BMI result Body Mass Index 25.8 Const General: cooperative, no acute distress, alert and awake Nutritional Appearance: well nourished Orientation/consciousness: patient oriented x3 Limitations: no limitations HENMT Head: Yes normal to inspection and Yes atraumatic Ears: hearing grossly normal bilaterally and external ears normal General nose exam: Normal external nose present, no nasal discharge noted and no epistaxis Face and sinus: Yes normal facial exam, No abrasion and No laceration Mouth: Normal oral and palatal mucosa present, no drooling and no muffled voice Eyes General: appearance normal, both eyes and all related structures Periorbital: periorbital findings normal Eyelids: Yes eyelids normal Conjunctivae: conjunctivae normal Pupils: Equal, round and reactive pupils present EOM: EOMs intact bilaterally Neck Neck: Yes normal visual inspection, Yes full ROM and Yes no lymphadenopathy Chest Chest palpation & inspection: normal inspection of the chest Resp Effort & Inspection: normal respiratory effort and able to speak in complete sentences GI Inspection: Yes normal to inspection Neuro General: patient oriented x3 and moves all extremities Cranial nerves: Yes Equal, round and reactive pupils present Cognition (Neuro): normal cognition Motor exam (neuro): 5/5 motor strength present throughout Sensory Exam: Normal double simultaneous stimulation for sensation Coordination: [id number] test normal Extrem General: Yes normal to inspection, Yes full ROM and Yes capillary refill normal Psych Appearance: grossly normal Mental Status: mental status grossly normal Affect: Sad affect present Attitude: Guarded attititude/behavior present Thought content: Suicidality present Medications Administered Discontinued Medications Generic Name Dose Route Start Last Admin Trade Name Freq PRN Reason Stop Dose Admin Carbidopa/Levodopa 2 tab 07/10/23 13:00 07/10/23 11:48 Carbidopa/Levodopa 25/100 Tablet PO 2 tab QID TRACEY Administration Lorazepam 2 mg 07/10/23 11:32 07/10/23 11:48 Lorazepam 1 Mg Tablet PO 2 mg ONCE PRN Administration Alcohol Withdrawal Lorazepam 2 mg 07/10/23 14:39 07/10/23 15:25 Lorazepam 1 Mg Tablet PO 07/10/23 14:40 2 mg ONCE ONE Administration Ondansetron HCl 4 mg 07/10/23 11:32 07/10/23 11:48 Ondansetron Odt 4 Mg Tab.Rapdis TRANSLINGU 4 mg ONCE PRN Administration Nausea Quetiapine Fumarate 50 mg 07/10/23 13:00 07/10/23 13:51 Quetiapine Fumarate 50 Mg Tablet PO 50 mg TID@0900,1300,1700 [facility] Administration Medical Decision Making Medical Decision Making MDM Narrative: Patient is a 52 year old assigned male at with a history of cocaine abuse, methampheatmine abuse, MCI, alcohol abuse, and parkinsons presenting to the emergency department today with suicidal ideation. Patient's physical exam was as noted. Patient's blood work was unremarkable. Patient's urine showed no acute process. Patient's EKG was unremarkable. I explained my physical exam findings as well as all test results to the patient. I answered all questions asked by the patient. Patient was placed in physician observation at 0925. CARE team evaluated the patient and recommended dual diagnosis admission. Patient was accepted by [facility] by Dr. Pablo Thorne. Observation care revealed the the patient does meet medical necessity for hospitalization however, he will transfer to an appropriate facility and not be hospitalized here. Final disposition discussed with the patient who verbalized understanding and agreement. Patient completed observation care at 1500, total time spent in observation care was 5 hours and 35 minutes. Patient verbalized agreement and understanding with this treatment plan and transfer to [facility]. Differential Diagnosis Differential Diagnoses: The differential diagnosis associated with the presentation includes Alcohol abuse Polysubstance abuse Suicidal deation Admission/Observation Consideration of admission/observation: Escalation of care including admission/observation considered Patient transferred to appropriate dual diagnosis facility. Consult Healthcare Provider Management of the patient was discussed with: Behavioral Health Provider (spoke to the CARE team as noted in the MDM Rationale portion of this note.) Lab Data [facility] Lab Attestation statement: I reviewed the patient's lab results. My interpretation of these results are in the MDM Rationale portion of this note. 07/10/23 08:52 07/10/23 08:52 Labs: Lab Results 07/10/23 Range/Units 08:52 WBC 6.4 (4.8-10.8) X10*3/uL RBC 4.49 L (4.60-5.80) X10*6/uL Hgb 15.6 (14.0-18.0) g/dl Hct 44.0 (42.0-52.0) % MCV 98.0 (80.0-98.0) fL MCH 34.7 H (27.0-33.0) pg MCHC 35.5 (31.0-36.0) g/dl RDW 14.7 (11.0-16.0) % Plt Count 155 L (160-400) X10*3/uL MPV 7.8 L (9.4-12.4) fL Immature Gran % (Auto) 0.3 (0.0-0.4) % Neut % (Auto) 77.1 H (45-73) % Lymph % (Auto) 17.1 L (20-40) % Wallace % (Auto) 5.0 (2-11) % Eos % (Auto) 0.2 (0-4) % Baso % (Auto) 0.3 (0-2) % Lymph # (Auto) 1.1 L (1.2-4.9) X10*3/uL Wallace # (Auto) 0.3 (0.1-1.2) X10*3/uL Eos # (Auto) 0.0 (0.0-0.4) X10*3/uL Baso # (Auto) 0.0 (0.0-0.2) X10*3/uL Abs Immat Gran (auto) 0.02 (0.00-0.03) X10*3/uL Absolute Neuts (auto) 5.0 (2.0-8.3) x10*3/uL Absolute Nucleated RBC 0.000 (0.0-0.012) X10*3/uL Nucleated RBC % (auto) 0.0 (0.0-0.2) /100WBC Sodium 142 (135-145) mmol/L Potassium 4.2 (3.3-5.1) mmol/L Chloride 100 (96-108) mmol/L Carbon Dioxide 19 L (22-29) mmol/L Anion Gap 27 H (12-20) BUN 12 (9-16) mg/dL Creatinine 0.83 (0.5-1.4) mg/dL Estim Creat Clear Calc 105.0 Estimated GFR > 60 Random Glucose 94 (60-115) mg/dL Calcium 9.3 (8.4-10.2) mg/dL Total Bilirubin 0.8 (0.0-1.0) mg/dL AST 270 H (5-37) U/L ALT 37 (0-40) U/L Alkaline Phosphatase 125 H (39-117) U/L Total Protein 8.2 H (6.5-8.0) g/dL Albumin 3.9 (3.5-5.0) g/dL Urine Color Dark Yellow Urine Appearance Clear Urine pH 5.5 (5.0-9.0) Ur Specific Franklin 1.025 (1.005-1.025) Urine Protein Trace (Neg-Trace) mg/dL Urine Glucose (UA) Negative (Negative) mg/dL Urine Ketones 40 (Negative) mg/dL Urine Blood Negative (Negative) Urine Nitrite Negative (Negative) Ur Leukocyte Esterase Negative (Negative) Salicylates < 5.0 L (15-30) mg/dL Urine Opiates Screen Not Detected (Not Detect) Ur Buprenorphine Scrn Not Detected (Not Detect) ng/mL Ur Oxycodone Screen Not Detected (Not Detect) ng/mL Urine Methadone Screen Not Detected (Not Detect) ng/mL Urine Fentanyl Screen Not Detected (Not Detect) Acetaminophen < 3 (<30) mcg/mL Ur Barbiturates Screen POSITIVE H (Not Detect) Ur Phencyclidine Scrn Not Detected (Not Detect) Ur Amphetamines Screen Not Detected (Not Detect) U Benzodiazepines Scrn Not Detected (Not Detect) Urine Cocaine Screen Not Detected (Not Detect) U Marijuana (THC) Screen POSITIVE H (Not Detect) Ethyl Alcohol 84 mg/dL COVID-19 (YANET) Negative (Negative) COVID-19 Clin Com See Note Independent Interpretation I performed an independent interpretation of an: EKG Interpretation: Vent. Rate: 080 BPM Atrial Rate: 080 BPM P-R Int: 190 ms QRS Dur: 082 ms QT Int: 380 ms P-R-T Axes: 059 014 038 degrees QTc Int: 438 ms Normal sinus rhythm Normal ECG No previous ECGs available DD/ 1331 Independent Historian Clinical information obtained from an independent historian. History obtained from or confirmed by: EMS (EMS provided additional history and confirmed the history provided by the patient.) Critical Care Time Critical Care Time Critical Care Time: Yes Total Critical Care Time: 138 Attestation: I spent 138 minutes of Critical Care Time with this patient. This does not include time spent on separately reported billable procedures. Discharge Plan Discharge Clinical Impression: Depression, Suicidal ideation, Alcohol abuse Patient Disposition: Xfer Psychiatric Hosp Prescriptions: No Action melatonin 3 mg Tablet 6 mg PO BEDTIME 30 Days Qty: 60 0RF carbidopa-levodopa 25-100 mg Tablet 2 tab PO QID 30 Days Qty: 240 0RF quetiapine 200 mg tablet 200 mg PO BEDTIME 30 Days Qty: 30 0RF trazodone 50 mg tablet 100 mg PO BEDTIME quetiapine 25 mg tablet 50 mg PO TID@0900,1300,1700 Interventions: Henry-Suicide Risk Severity Scale Last Done: 07/10/23 08:29 Acute Care Transfer Worksheet (ED) Last Done: 07/10/23 15:25 Discharge Date/Time: 07/10/23 15:27 Print Language: Tamazight
[2023-07-10 08:23] VITALS: BP 115/58; BP 124/65; PULSE 103; PULSE 96; RESP 16; TEMP 36.3; O2SAT 97; O2SAT 98; BMI 25.8
[2023-07-10 08:29] VITALS: PULSE 99; RESP 16; O2SAT 98
[2023-07-10 08:57] LABS: MANUAL DIFF FLAG NO
[2023-07-10 09:01] LABS: Basophils Percent Auto 0.3 % (0-2); Eosinophils Percent Auto 0.2 % (0-4); Hemoglobin 15.6 g/dl (14.0-18.0); Imm Gran Abs Auto 0.02 X10*3/uL (0.00-0.03); Imm Gran Pct Auto 0.3 % (0.0-0.4); Lymphocytes Absolute Auto 1.1 X10*3/uL (1.2-4.9); Lymphocytes Percent Auto 17.1 % (20-40); Mean Corpuscular HGB Conc 35.5 g/dl (31.0-36.0); Mean Corpuscular Hemoglobin 34.7 pg (27.0-33.0); Mean Platelet Volume 7.8 fL (9.4-12.4); Monocytes Absolute Auto 0.3 X10*3/uL (0.1-1.2); Neutrophils Percent Auto 77.1 % (45-73); Platelet Count 155 X10*3/uL (160-400); Red Blood Count 4.49 X10*6/uL (4.60-5.80); Red Cell Distribution Width 14.7 % (11.0-16.0); White Blood Count 6.4 X10*3/uL (4.8-10.8)
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
[2023-07-10 09:05] LABS: Appearance Urine Clear; Color Urine Dark Yellow; Glucose Urine UA Negative (Negative); Leukocyte Esterase Urine Negative (Negative); Nitrite Urine Negative (Negative); PH 5.5 (5.0-9.0); Specific Gravity - Urine 1.025 (1.005-1.025); Urine Blood Negative (Negative); Urine Ketones 40 mg/dL (Negative); Urine Protein Trace mg/dL (Neg-Trace)
[2023-07-10 09:12] LABS: Amphetamine Screen Urine Not Detected (Not Detect); Barbiturates, Urine POSITIVE (Not Detect); Benzodiazepines Screen Urine Not Detected (Not Detect); Buprenorphine Scr Not Detected (Not Detect); Cannabinoid Screen Urine POSITIVE (Not Detect); Cocaine Screen Urine Not Detected (Not Detect); Fentanyl, urine Not Detected (Not Detect); Methadone Screen, Urine Not Detected (Not Detect); Opiate Screen Urine Not Detected (Not Detect); Oxycodone Screen Urine Not Detected (Not Detect); Phencyclidine Screen Urine Not Detected (Not Detect)
[2023-07-10 09:15] LABS: Acetaminophen LAB < 3 mcg/mL (<30); Salicylate < 5.0 mg/dL (15-30)
[2023-07-10 09:16] LABS: COVID-19 Test Negative (Negative); IDNOW Serial# 152EDE1D
[2023-07-10 09:19] LABS: Alanine Aminotransferase 37 U/L (0-40); Albumin Level 3.9 g/dL (3.5-5.0); Alkaline Phosphatase 125 U/L (39-117); Anion Gap 27 (12-20); Aspartate Amino Transferase 270 U/L (5-37); Bilirubin Total 0.8 mg/dL (0.0-1.0); Blood Urea Nitrogen 12 mg/dL (9-16); Calcium 9.3 mg/dL (8.4-10.2); Carbon Dioxide 19 mmol/L (22-29); Chloride 100 mmol/L (96-108); Estimated Glomerular Filt Rate > 60; Ethanol 84 mg/dL; Glucose Random 94 mg/dL (60-115); Potassium 4.2 mmol/L (3.3-5.1); Sodium 142 mmol/L (135-145); Total Protein 8.2 g/dL (6.5-8.0)
[2023-07-10] MEDS: LORazepam 1 MG TABLET 2 MG PO ×2 (11:48→15:25)
[2023-07-10] MEDS: Carbidopa/Levodopa 25/100 TABLET 2 TAB PO (11:48)
[2023-07-10] MEDS: Ondansetron ODT 4 MG TAB.RAPDIS TRANSLINGU (11:48)
--- NOTE | 2023-07-10 12:06 | PC.NURSE ---
Patient reported increasing nausea. CIWA scale done, patient scored 11, PA aware. PRN meds ordered and administered per MAR
--- NOTE | 2023-07-10 12:57 | MHC.CARE ---
Pt was accepted to [facility] for today 07/10/23. ETA is next available. The accepting provider is Dr. Pablo Thorne. The address is [address] [place] [address]. CARE team was notified of placement to complete the section 12a for transport and the pod RN was notified to work on transport/discharge.
[2023-07-10] MEDS: QUEtiapine Fumarate 50 MG TABLET PO (13:51)
[2023-07-10 14:00] VITALS: BP 105/69; PULSE 93; RESP 16; TEMP 36.9; O2SAT 96
[2023-07-10 15:25] VITALS: BP 108/66; PULSE 68; RESP 16; TEMP 36.7; O2SAT 98
== END 2023-07-10 15:27 ==
PROVIDERS: Physician Assistant Medical; Emergency Provider Student in an Organized Health Care Education/Training Program
DX: F33.1 Major depressive disorder, recurrent, moderate (principal); R45.851 Suicidal ideations; F10.10 Alcohol abuse, uncomplicated; Y90.4 Blood alcohol level of 80-99 mg/100 ml; R94.31 Abnormal electrocardiogram [ECG] [EKG]; Z11.52 Encounter for screening for COVID-19; Z79.899 Other long term (current) drug therapy
CPT/HCPCS: 80053; 80143; 80179; 80307; 81003; 85025; 87635; 93005; 99285; S9485

== ENCOUNTER → 2023-07-10 08:12 | Outpatient (BNV) | payer OTHER, SELFPAY | PROVIDERS: Emergency Provider Student in an Organized Health Care Education/Training Program; Visit Provider Internal Medicine Cardiovascular Disease | DX: I45.81 Long QT syndrome (principal) | CPT/HCPCS: 93010 ==